=== PATIENT | male | born 1945 | race Caucasian/White ===

== ENCOUNTER 2020-06-14 10:24 | Day surgery (SDC) | payer MEDICARE, SELFPAY ==
--- NOTE | 2020-06-01 13:47 | MHC.SHP ---
Pre-Procedural Eval Section A The patient is an INPATIENT: No The History & Physical has been completed within 30 days and I have reviewed it.: Yes Section B Chief Complaint: Cataract Right Eye Plan Diagnosis/Plan: Unchanged Patient has been examined and remains a candidate for the planned procedure
[2020-06-03 14:42] VITALS: BMI 26.6
--- NOTE | 2020-06-07 14:40 | HO.ANESPROP2 ---
Documented by User: Alma Rosa Payan 06/07/20 14:40 HPI - Anesthesia Eval Consult details Narrative: 74yo M for Cataract Extraction No prev cataract [facility] Past Medical History Medical History Acne rosacea Coronary arteriosclerosis Former smoker GERD (gastroesophageal reflux disease) Gout Hx of renal calculi Hyperlipidemia Hypothyroidism Surgical History Surgical History Hx of CABG Hx of cystoscopy Social History Social History Are you a primary child care attendant school to a significant other at home: No Do you presently have visiting nurse or other home services: No Smoking Status: Former smoker Smoking Quit Date: 50 yrs ago Use of substances other than those prescribed or required for medical reasons: No Have you been hit, kicked, punched, or otherwise hurt by someone within the past year? If so, by whom?: No Advance Directives: No Advance Directives Information Provided: No Advance Directives on File: No Meds Allergies Allergy/AdvReac Type Severity Reaction Status Date / Time Penicillins Allergy Unknown Rash Unverified 06/14/20 10:50 Home Medications Medication Instructions Recorded Confirmed Type levothyroxine 1 tab PO DAILY 06/03/20 06/03/20 History lorazepam 1 tab PO TID PRN 06/03/20 06/03/20 History metronidazole 1 applic TOPICAL DAILY 06/03/20 06/03/20 History omeprazole magnesium [Prilosec OTC] 20 mg PO DAILY 06/03/20 06/03/20 History simvastatin 40 mg PO DAILY 06/03/20 06/03/20 History Exam Exam Date and Time: June 07, 2020 1440 Height,Weight and Vital Signs: Height 5 ft 8 in Weight 79.379 kg Assessment and Plan Assessment Anesthesia Assessment: Chart Reviewed Documented by User: Teagan Stack 06/14/20 11:07 [facility] Past Medical History Medical History Acne rosacea Coronary arteriosclerosis Former smoker GERD (gastroesophageal reflux disease) Gout Hx of renal calculi Hyperlipidemia Hypothyroidism Surgical History Surgical History Hx of CABG Hx of cystoscopy Social History Social History Are you a primary child care attendant school to a significant other at home: No Do you presently have visiting nurse or other home services: No Smoking Status: Former smoker Smoking Quit Date: 50 yrs ago Use of substances other than those prescribed or required for medical reasons: No Have you been hit, kicked, punched, or otherwise hurt by someone within the past year? If so, by whom?: No Advance Directives: No Advance Directives Information Provided: No Advance Directives on File: No Meds Allergies Allergy/AdvReac Type Severity Reaction Status Date / Time Penicillins Allergy Unknown Rash Unverified 06/14/20 10:50 Home Medications Medication Instructions Recorded Confirmed Type levothyroxine 1 tab PO DAILY 06/03/20 06/03/20 History lorazepam 1 tab PO TID PRN 06/03/20 06/03/20 History metronidazole 1 applic TOPICAL DAILY 06/03/20 06/03/20 History omeprazole magnesium [Prilosec OTC] 20 mg PO DAILY 06/03/20 06/03/20 History simvastatin 40 mg PO DAILY 06/03/20 06/03/20 History Exam Narrative Narrative: upper temporary bridge Airway Mallampati Class: II TM Dist: >3cm Neck ROM: Full Loose/Missing/Broken Teeth: No Heart: RRR Lungs: CTA Assessment and Plan Assessment Anesthesia Assessment: Anesthesia Plan Discussed and Chart Reviewed Final Anesthetic Review NPO: Yes ASA Class: II Final Preanesthetic Review: Meds/Allgs Chart Reviewed, Consent Obtained/Reviewed and Anes Risks/Benef Reviewed Patient Risk: Intermediate Procedure Risk: Low Anesthetic Plan Anesthetic Plan: MAC: Disposition: Standard PACU
[2020-06-14 10:50] VITALS: BP 126/63; PULSE 56; RESP 16; TEMP 36.8; O2SAT 97
[2020-06-14] MEDS: Tetracaine HCl/PF 0.5% Oph Sol 4 ML DROPS 1 DROP EYE-RIGHT (10:59)
[2020-06-14] MEDS: Lactated Ringers 500 ML 50 ML IV (10:59)
[2020-06-14] MEDS: Tropicamide 1 % Ophth Sol 3 ML BTL 1 DROP EYE-RIGHT ×3 (11:01→11:08)
[2020-06-14 12:26] VITALS: BP 120/57; PULSE 50; RESP 16; TEMP 36.6; O2SAT 98
--- NOTE | 2020-06-14 12:29 | HO.PNOPHT ---
Ophthalmology Procedure Procedure Date of Service: 06/14/20 Ophthalmology Viscoelastic: Healon Duet Dual Pack Pro Ophthalmology Lenses: TECNIS [id number] (22.5) Procedure Notes: PREOPERATIVE DIAGNOSIS: Decreased visual acuity right eye secondary to cataract POSTOPERATIVE DIAGNOSIS: Same PROCEDURE: Right cataract extraction with intraocular lens insertion SURGEON: Scottie Trevino M.D. ANESTHESIA: Topical/MAC ESTIMATED BLOOD LOSS: None COMPLICATIONS: None After obtaining informed consent, the patient was brought to the operating room suite and placed in the supine position. After adequate sedation per anesthesia, topical drops of Tetracaine were given to the right eye. The eye was then prepped and draped in the usual sterile fashion. The operating room microscope was then positioned over the operative eye and a lid speculum placed. A paracentesis was created. Viscoelastic was then instilled into the anterior chamber. A three plane incision was then created temporally, utilizing a 2.85 mm keratome. Capsulotomy forceps were then utilized to create a circular tear capsulotomy. Hydrodissection and hydrodelineation were carried out until adequate mobilization of the nucleus occurred. Phacoemulsification was then utilized to remove the dense central nucleus followed by removal of the cortical material utilizing the automated aspiration irrigation unit. Viscoelastic was instilled into the posterior capsular bag followed by placement of a posterior chamber intraocular lens without difficulty. The residual Viscoelastic was then removed utilizing the automated IA machine. The wound was checked and found to be watertight. The patient tolerated the procedure well and the lid speculum was removed. Intracameral injection of Vigamox 0.1 mL followed by a subtenon injection of Kenalog-40 0.2 mL were administered. The patient will be seen in the a.m.
== END 2020-06-14 12:45 | disposition home or self-care (01) ==
PROVIDERS: PCP Internal Medicine; Visit Provider Ophthalmology
PROC: (CPT 66985; principal; 2020-06-14 13:10)
DX: H25.11 Age-related nuclear cataract, right eye (principal)
CPT/HCPCS: 66984; J2250; J3010; J3300; V2632

== ENCOUNTER 2020-06-28 07:58 | Day surgery (SDC) | payer MEDICARE, SELFPAY ==
[2020-06-03 14:46] VITALS: BMI 26.6
--- NOTE | 2020-06-24 08:36 | MHC.SHP ---
Pre-Procedural Eval Section A The patient is an INPATIENT: No The History & Physical has been completed within 30 days and I have reviewed it.: Yes Section B Chief Complaint: Cataract Left Eye Allergies: Allergies Allergy/AdvReac Type Severity Reaction Status Date / Time Penicillins Allergy Unknown Rash Unverified 06/14/20 10:50 Plan Diagnosis/Plan: Unchanged Patient has been examined and remains a candidate for the planned procedure
--- NOTE | 2020-06-25 11:10 | P.CONAN_ITS ---
Documented by User: Alma Rosa Payan 06/25/20 11:15 HPI - Anesthesia Eval Consult details Narrative: 74yo M for Cataract Extraction PCP cleared, >30 days, anesth to do 30 day update First eye 06/14/20; Fent 50, Midaz 2 [facility] Past Medical History Medical History Acne rosacea Coronary arteriosclerosis Former smoker GERD (gastroesophageal reflux disease) Gout Hx of renal calculi Hyperlipidemia Hypothyroidism Surgical History Surgical History Hx of CABG Hx of cystoscopy Social History Social History Are you a primary ocular care aide to a significant other at home: No Smoking Status: Former smoker Smoking Quit Date: 50 yrs ago Use of substances other than those prescribed or required for medical reasons: No Advance Directives: No Advance Directives Information Provided: No Advance Directives on File: No Meds Allergies Allergy/AdvReac Type Severity Reaction Status Date / Time Penicillins Allergy Unknown Rash Unverified 06/14/20 10:50 Home Medications Medication Instructions Recorded Confirmed Type levothyroxine 1 tab PO DAILY 06/03/20 06/28/20 History lorazepam 1 tab PO TID PRN 06/03/20 06/03/20 History metronidazole 1 applic TOPICAL DAILY 06/03/20 06/03/20 History omeprazole magnesium [Prilosec OTC] 20 mg PO DAILY 06/03/20 06/03/20 History simvastatin 40 mg PO DAILY 06/03/20 06/03/20 History Exam Exam Date and Time: June 25, 2020 1110 Height,Weight and Vital Signs: Height 5 ft 8 in Weight 79.379 kg Assessment and Plan Assessment Anesthesia Assessment: Chart Reviewed Documented by User: Teagan Stack 06/28/20 09:34 [facility] Past Medical History Medical History Acne rosacea Coronary arteriosclerosis Former smoker GERD (gastroesophageal reflux disease) Gout Hx of renal calculi Hyperlipidemia Hypothyroidism Surgical History Surgical History Hx of CABG Hx of cystoscopy Social History Social History Are you a primary ocular care aide to a significant other at home: No Smoking Status: Former smoker Smoking Quit Date: 50 yrs ago Use of substances other than those prescribed or required for medical reasons: No Advance Directives: No Advance Directives Information Provided: No Advance Directives on File: No Meds Allergies Allergy/AdvReac Type Severity Reaction Status Date / Time Penicillins Allergy Unknown Rash Unverified 06/14/20 10:50 Home Medications Medication Instructions Recorded Confirmed Type levothyroxine 1 tab PO DAILY 06/03/20 06/28/20 History lorazepam 1 tab PO TID PRN 06/03/20 06/03/20 History metronidazole 1 applic TOPICAL DAILY 06/03/20 06/03/20 History omeprazole magnesium [Prilosec OTC] 20 mg PO DAILY 06/03/20 06/03/20 History simvastatin 40 mg PO DAILY 06/03/20 06/03/20 History Exam Airway Mallampati Class: II TM Dist: >3cm Neck ROM: Full Loose/Missing/Broken Teeth: No Heart: RRR Lungs: CTA Assessment and Plan Assessment Anesthesia Assessment: Anesthesia Plan Discussed and Chart Reviewed Final Anesthetic Review NPO: Yes ASA Class: II Final Preanesthetic Review: Meds/Allgs Chart Reviewed, Consent Obtained/Reviewed and Anes Risks/Benef Reviewed Patient Risk: Intermediate Procedure Risk: Low Anesthetic Plan Anesthetic Plan: MAC: Disposition: Standard PACU
--- NOTE | 2020-06-25 11:17 | MHC.SHP ---
Documented by User: Alma Rosa Payan 06/25/20 11:19 Pre-Procedural Eval Section B Chief Complaint: Cataract Left Eye Details of Present Illness: Decreased vision left eye Relevant Family History (Specify if Yes): No Relevant Social History: Tobacco Use (former) Present Medications: see Short Stay [facility] assessment Medical History: Significant History (See [facility] collab) History of Previous Operations: Relevant previous surgery/procedure and date(s) (right eye cataract 06/14/20 without issue) Allergies: Allergies Allergy/AdvReac Type Severity Reaction Status Date / Time Penicillins Allergy Unknown Rash Unverified 06/14/20 10:50 Plan Patient has been examined and remains a candidate for the planned procedure Documented by User: Fam Gallagher 06/28/20 09:23 Pre-Procedural Eval Section A The patient is an INPATIENT: No Changes since office visit: Yes Patient answered all questions The History & Physical has been completed within 30 days and I have reviewed it.: Yes Section B Chief Complaint: Cataract Left Eye Relevant Family History (Specify if Yes): No Present Medications: see [place] Stay [facility] assessment Documented by User: Teagan Stakc 06/28/20 09:25 Pre-Procedural Eval Section B Chief Complaint: Cataract Left Eye Details of Present Illness: Left eye cataract Relevant Family History (Specify if Yes): No Relevant Social History: None Present Medications: see Short Stay [facility] assessment Medical History: Significant History (Hypothyroid, HLd) History of Previous Operations: Relevant previous surgery/procedure and date(s) (Right cTaract 2 weeks ago) Allergies: PCN Review of Systems Sugical H&P ROS: Negative: Constitution, Cardiovascular, Respiratory, Neurological, Psychiatric, Hem-Onc, Allergic/Immunologic, Gastrointestinal, Musculoskeletal, Integumentary, Endocrine and Eyes/Ears/Nose/Throat Exam Surgical H&P Exam: Normal: HEENT, Normal: Heart, Normal: Lungs, Normal: Extremities, Normal: Abdomen, Normal: Skin and Normal: Neurological Plan Diagnosis/Plan: Unchanged
[2020-06-28] MEDS: Tetracaine HCl/PF 0.5% Oph Sol 4 ML DROPS 1 DROP EYE-LEFT (09:21)
[2020-06-28] MEDS: Tropicamide 1 % Ophth Sol 3 ML BTL 1 DROP EYE-LEFT ×3 (09:23→09:30)
[2020-06-28] MEDS: Phenylephrine HCL 2.5% Oph SoL 2 ML BOTTLE 1 DROP EYE-LEFT ×3 (09:26→09:33)
[2020-06-28] MEDS: Lactated Ringers 500 ML 50 ML IV (09:26)
[2020-06-28 09:33] VITALS: BP 130/61; PULSE 53; RESP 16; TEMP 36.7; O2SAT 98
--- NOTE | 2020-06-28 10:21 | HO.PNOPHT ---
Ophthalmology Procedure Procedure Date of Service: 06/28/20 Ophthalmology Viscoelastic: Healon Duet Dual Pack Pro Ophthalmology Lenses: TECGITA [id number] (23) Procedure Notes: PREOPERATIVE DIAGNOSIS: Decreased visual acuity left eye secondary to cataract POSTOPERATIVE DIAGNOSIS: Same PROCEDURE: Left cataract extraction with intraocular lens insertion SURGEON: Scottie Trevino M.D. ANESTHESIA: Topical/MAC ESTIMATED BLOOD LOSS: None COMPLICATIONS: None After obtaining informed consent, the patient was brought to the operation room suite and placed in the supine position. After adequate sedation per anesthesia, topical drops of Tetracaine were given to the left eye. The eye was then prepped and draped in the usual sterile fashion. The operating room microscope was then positioned over the operative eye and a lid speculum placed. A paracentesis was created. Viscoelastic was then instilled into the anterior chamber. A three plane incision was then created temporally, utilizing a 2.85 mm keratome. Capsulotomy forceps were then utilized to create a circular tear capsulotomy. Hydrodissection and hydrodelineation were carried out until adequate mobilization of the nucleus occurred. Phacoemulsification was then utilized to remove the dense central nucleus followed by removal of the cortical material utilizing the automated aspiration irrigation unit. Viscoat elastic was instilled into the posterior capsular bag followed by placement of a posterior chamber intraocular lens without difficulty. The residual Viscoat elastic was then removed utilizing the automated IA machine. The wound was check and found to be watertight. The patient tolerated the procedure well and the lid speculum was removed. Intracameral injection of Vigamox 0.1 mL followed by a subtenon injection of Kenalog-40 0.2 mL were administered. The patient will be seen in the a.m.
[2020-06-28 10:23] VITALS: BP 110/54; PULSE 52; RESP 18; TEMP 36.6; O2SAT 98
--- NOTE | 2020-06-28 10:33 | HO.POSTANES ---
Post Anesthesia Evaluation Post Anesthesia Evaluation Vital Signs: Vital Signs Temp Pulse Resp BP Pulse Ox 06/28/20 10:23 97.9 F 52 18 110/54 L 98 06/28/20 09:33 98.0 F 53 16 130/61 98 Anesthesia: Monitored Mental Status: Awake Pain Control: Satisfactory Nausea/Vomiting: None Hydration: Adequate Anesthesia-Related Issues: No Anes. Related Issues
== END 2020-06-28 10:47 | disposition home or self-care (01) ==
PROVIDERS: PCP Internal Medicine; Visit Provider Ophthalmology
PROC: (CPT 66985; principal; 2020-06-28 10:00)
DX: H25.12 Age-related nuclear cataract, left eye (principal); H52.4 Presbyopia; E03.9 Hypothyroidism, unspecified; E78.5 Hyperlipidemia, unspecified; Z87.891 Personal history of nicotine dependence; Z79.899 Other long term (current) drug therapy
CPT/HCPCS: 66984; J2250; J3010; J3300; V2632

== ENCOUNTER 2020-10-01 08:05 | Outpatient (REF) | payer MEDICARE, SELFPAY ==
[2020-10-01 09:10] LABS: MANUAL DIFF FLAG NO
[2020-10-01 09:15] LABS: Basophils Absolute Auto 0.1 X10*3/uL (0.0-0.2); Eosinophils Absolute Auto 0.2 X10*3/uL (0.0-0.4); Eosinophils Percent Auto 2.9 % (0-4); Hematocrit 46.5 % (42-52); Hemoglobin 15.1 g/dl (14.0-18.0); Imm Gran Abs Auto 0.04 X10*3/uL (0.00-0.03); Imm Gran Pct Auto 0.7 % (0.0-0.4); Lymphocytes Absolute Auto 1.5 X10*3/uL (1.2-4.9); Lymphocytes Percent Auto 25.5 % (20-40); Mean Corpuscular HGB Conc 32.5 g/dl (31.0-36.0); Mean Corpuscular Hemoglobin 31.8 pg (27.0-33.0); Mean Corpuscular Volume 97.9 fL (80-98); Mean Platelet Volume 11.4 fL (9.4-12.4); Monocytes Absolute Auto 0.8 X10*3/uL (0.1-1.2); Monocytes Percent Auto 13.4 % (2-11); Neutrophils Absolute Auto 3.4 X10*3/uL (2.0-8.3); Neutrophils Percent Auto 56.5 % (45-73); Platelet Count 190 X10*3/uL (160-400); Red Blood Count 4.75 X10*6/uL (4.60-5.80); Red Cell Distribution Width 12.9 % (11.0-16.0)
[2020-10-01 09:39] LABS: Alanine Aminotransferase 16 U/L (0-40); Albumin Level 3.8 g/dL (3.5-5.0); Alkaline Phosphatase 69 U/L (39-117); Anion Gap 10 (12-20); Aspartate Amino Transferase 23 U/L (5-37); Bilirubin Total 0.8 mg/dL (0.0-1.0); Blood Urea Nitrogen 21 mg/dL (9-16); Calcium 8.6 mg/dL (8.4-10.2); Carbon Dioxide 27 mmol/L (22-29); Chloride 106 mmol/L (96-108); Cholesterol 109 mg/dL; Estimated Glomerular Filt Rate > 60; Glucose Random 92 mg/dL (60-115); HDL Cholesterol 35 mg/dL; LDL Cholesterol Calculated 63 mg/dl; Potassium 4.6 mmol/L (3.3-5.1); Sodium 138 mmol/L (135-145); Triglycerides 56 mg/dL; Uric Acid 5.5 mg/dL (3.4-7.0)
[2020-10-01 10:12] LABS: Prostate Specific Antigen 1.25 ng/mL (<0.05-4.0)
== END 2020-10-01 08:06 | disposition home or self-care (01) ==
LOC: HO.LAB 08:05
PROVIDERS: PCP Internal Medicine; Visit Provider Internal Medicine
DX: Z00.01 Encounter for general adult medical examination with abnormal findings (principal); Z13.6 Encounter for screening for cardiovascular disorders; Z12.5 Encounter for screening for malignant neoplasm of prostate; M10.9 Gout, unspecified
CPT/HCPCS: 36415; 80053; 80061; 84153; 84550; 85025

== ENCOUNTER 2021-08-29 08:14 | Outpatient (REF) | payer MEDICARE, SELFPAY ==
[2021-08-29 11:39] LABS: Alanine Aminotransferase 15 U/L (0-40); Albumin Level 3.9 g/dL (3.5-5.0); Alkaline Phosphatase 74 U/L (39-117); Anion Gap 7 (12-20); Aspartate Amino Transferase 19 U/L (5-37); Bilirubin Total 0.7 mg/dL (0.0-1.0); Blood Urea Nitrogen 23 mg/dL (9-16); Calcium 9.2 mg/dL (8.4-10.2); Carbon Dioxide 29 mmol/L (22-29); Chloride 106 mmol/L (96-108); Estimated Glomerular Filt Rate > 60; Glucose Random 75 mg/dL (60-115); Potassium 4.4 mmol/L (3.3-5.1); Sodium 138 mmol/L (135-145); Total Protein 7.3 g/dL (6.5-8.0); Uric Acid 5.3 mg/dL (3.4-7.0)
[2021-08-29 11:44] LABS: Free T4 (Free Thyroxine) 1.04 ng/dL (0.71-1.85); Thyroid Stimulating Hormone 2.99 uIU/mL (0.32-4.0)
== END 2021-08-29 08:15 | disposition home or self-care (01) ==
LOC: HO.MANLDS 08:14
PROVIDERS: PCP Physician Assistant; Visit Provider Physician Assistant
DX: M10.072 Idiopathic gout, left ankle and foot (principal); E78.01 Familial hypercholesterolemia; E03.8 Other specified hypothyroidism
CPT/HCPCS: 36415; 80053; 84439; 84443; 84550

== ENCOUNTER 2021-11-09 11:45 | Outpatient (REF) | payer MEDICARE, SELFPAY ==
--- NOTE | ~2021-11-09 | XR_ITS ---
EXAMINATION: XR CHEST CLINICAL INFORMATION: Cough COMPARISON: None TECHNIQUE: 2 views of the chest were obtained. FINDINGS: Patchy airspace opacities of the lower lobes, left greater than right. No pleural effusion or pneumothorax. Heart size is normal. Prior coronary artery bypass grafting. Atherosclerosis thoracic aorta. No acute osseous abnormality. ORIF right clavicle. XR/XR chest 2V IMPRESSION: Patchy airspace opacities bilaterally, left greater than right. In this patient with cough, this finding would be in keeping with pneumonia or other acute inflammatory process. Follow-up to resolution recommended. The report will be called to the ordering clinician by a [facility] Workflow Coordinator.
== END 2021-11-09 11:46 | disposition home or self-care (01) ==
LOC: HO.XRAY 11:45
PROVIDERS: PCP Internal Medicine; Visit Provider Physician Assistant
DX: R05.1 Acute cough (principal)
CPT/HCPCS: 71046

== ENCOUNTER 2022-08-09 10:22 | Outpatient (REF) | payer MEDICARE, SELFPAY ==
[2022-08-09 10:42] LABS: MANUAL DIFF FLAG NO
[2022-08-09 11:39] LABS: Basophils Absolute Auto 0.1 X10*3/uL (0.0-0.2); Basophils Percent Auto 1.4 % (0-2); Eosinophils Absolute Auto 0.1 X10*3/uL (0.0-0.4); Eosinophils Percent Auto 1.2 % (0-4); Hematocrit 45.7 % (42.0-52.0); Hemoglobin 14.9 g/dl (14.0-18.0); Imm Gran Abs Auto 0.03 X10*3/uL (0.00-0.03); Imm Gran Pct Auto 0.5 % (0.0-0.4); Lymphocytes Absolute Auto 1.5 X10*3/uL (1.2-4.9); Lymphocytes Percent Auto 25.8 % (20-40); Mean Corpuscular HGB Conc 32.6 g/dl (31.0-36.0); Mean Corpuscular Hemoglobin 31.4 pg (27.0-33.0); Mean Corpuscular Volume 96.2 fL (80.0-98.0); Mean Platelet Volume 11.1 fL (9.4-12.4); Monocytes Absolute Auto 0.8 X10*3/uL (0.1-1.2); Monocytes Percent Auto 13.5 % (2-11); Neutrophils Absolute Auto 3.3 x10*3/uL (2.0-8.3); Neutrophils Percent Auto 57.6 % (45-73); Platelet Count 177 X10*3/uL (160-400); Red Blood Count 4.75 X10*6/uL (4.60-5.80); Red Cell Distribution Width 13.1 % (11.0-16.0); White Blood Count 5.8 X10*3/uL (4.8-10.8)
[2022-08-09 12:28] LABS: Alanine Aminotransferase 18 U/L (0-40); Albumin Level 3.6 g/dL (3.5-5.0); Alkaline Phosphatase 73 U/L (39-117); Anion Gap 11 (12-20); Aspartate Amino Transferase 24 U/L (5-37); Blood Urea Nitrogen 16 mg/dL (9-16); Carbon Dioxide 28 mmol/L (22-29); Chloride 106 mmol/L (96-108); Cholesterol 108 mg/dL; Estimated Glomerular Filt Rate > 60; Glucose Random 91 mg/dL (60-115); HDL Cholesterol 35 mg/dL; LDL Cholesterol Calculated 62 mg/dl; Potassium 4.9 mmol/L (3.3-5.1); Prostate Specific Antigen 1.78 ng/mL (<0.05-4.0); Sodium 140 mmol/L (135-145); Thyroid Stimulating Hormone 1.48 uIU/mL (0.32-4.0); Total Protein 6.7 g/dL (6.5-8.0); Triglycerides 58 mg/dL; Vitamin D 25-OH Total 25.9 ng/mL (>30)
[2022-08-09 12:32] LABS: Vitamin B12 498 pg/mL (200-900)
== END 2022-08-09 10:23 | disposition home or self-care (01) ==
LOC: HO.LAB 10:22
PROVIDERS: PCP Internal Medicine; Visit Provider Internal Medicine
DX: Z00.00 Encounter for general adult medical examination without abnormal findings (principal); Z12.5 Encounter for screening for malignant neoplasm of prostate; M10.9 Gout, unspecified
CPT/HCPCS: 36415; 80053; 80061; 82306; 82607; 84153; 84443; 84550; 85025

== ENCOUNTER 2023-01-03 08:26 | Outpatient (REF) | payer MEDICARE, SELFPAY ==
[2023-01-03 10:14] LABS: Estimated Average Glucose 103 mg/dL; Hemoglobin A1c % 5.2 %
[2023-01-03 11:23] LABS: Alanine Aminotransferase 18 U/L (0-40); Albumin Level 3.7 g/dL (3.5-5.0); Alkaline Phosphatase 73 U/L (39-117); Anion Gap 10 (12-20); Aspartate Amino Transferase 23 U/L (5-37); Bilirubin Direct 0.3 mg/dL (0.0-0.5); Bilirubin Total 1.2 mg/dL (0.0-1.0); Blood Urea Nitrogen 17 mg/dL (9-16); Calcium 9.2 mg/dL (8.4-10.2); Carbon Dioxide 27 mmol/L (22-29); Chloride 108 mmol/L (96-108); Cholesterol 100 mg/dL; Estimated Glomerular Filt Rate > 60; Glucose Random 86 mg/dL (60-115); HDL Cholesterol 32 mg/dL; LDL Cholesterol Calculated 56 mg/dl; Potassium 4.8 mmol/L (3.3-5.1); Sodium 140 mmol/L (135-145); Total Protein 7.3 g/dL (6.5-8.0); Triglycerides 62 mg/dL
== END 2023-01-03 08:27 | disposition home or self-care (01) ==
LOC: HO.LAB 08:26
PROVIDERS: PCP Internal Medicine; Visit Provider Internal Medicine Cardiovascular Disease
DX: E78.2 Mixed hyperlipidemia (principal)
CPT/HCPCS: 36415; 80048; 80061; 80076; 83036

== ENCOUNTER 2023-06-22 11:48 | Outpatient (REF) | payer MEDICARE, SELFPAY ==
[2023-06-22 14:16] LABS: Free T4 (Free Thyroxine) 1.13 ng/dL (0.71-1.85); Thyroid Stimulating Hormone 1.22 uIU/mL (0.32-4.0)
== END 2023-06-22 11:49 | disposition home or self-care (01) ==
LOC: HO.MANLDS 11:48
PROVIDERS: Visit Provider Internal Medicine
DX: E03.8 Other specified hypothyroidism (principal)
CPT/HCPCS: 36415; 84439; 84443

== ENCOUNTER 2024-01-04 08:17 | Outpatient (REF) | payer MEDICARE, SELFPAY ==
[2024-01-04 08:42] LABS: MANUAL DIFF FLAG NO
[2024-01-04 09:03] LABS: Basophils Absolute Auto 0.1 X10*3/uL (0.0-0.2); Basophils Percent Auto 0.8 % (0-2); Eosinophils Absolute Auto 0.1 X10*3/uL (0.0-0.4); Eosinophils Percent Auto 1.8 % (0-4); Hematocrit 44.2 % (42.0-52.0); Imm Gran Abs Auto 0.02 X10*3/uL (0.00-0.03); Imm Gran Pct Auto 0.3 % (0.0-0.4); Lymphocytes Absolute Auto 1.7 X10*3/uL (1.2-4.9); Lymphocytes Percent Auto 28.1 % (20-40); Mean Corpuscular HGB Conc 33.9 g/dl (31.0-36.0); Mean Corpuscular Hemoglobin 32.5 pg (27.0-33.0); Mean Corpuscular Volume 95.7 fL (80.0-98.0); Mean Platelet Volume 10.9 fL (9.4-12.4); Monocytes Absolute Auto 0.7 X10*3/uL (0.1-1.2); Monocytes Percent Auto 11.4 % (2-11); Neutrophils Absolute Auto 3.5 x10*3/uL (2.0-8.3); Neutrophils Percent Auto 57.6 % (45-73); Platelet Count 154 X10*3/uL (160-400); Red Blood Count 4.62 X10*6/uL (4.60-5.80); Red Cell Distribution Width 12.8 % (11.0-16.0)
[2024-01-04 09:52] LABS: Alanine Aminotransferase 14 U/L (0-40); Albumin Level 3.7 g/dL (3.5-5.0); Alkaline Phosphatase 73 U/L (39-117); Anion Gap 8 (12-20); Aspartate Amino Transferase 24 U/L (5-37); Bilirubin Total 0.6 mg/dL (0.0-1.0); Blood Urea Nitrogen 19 mg/dL (9-16); Calcium 9.5 mg/dL (8.4-10.2); Carbon Dioxide 27 mmol/L (22-29); Chloride 110 mmol/L (96-108); Cholesterol 112 mg/dL (<200); Estimated Glomerular Filt Rate > 60; Glucose Random 100 mg/dL (60-115); HDL Cholesterol 33 mg/dL (>40); LDL Cholesterol Calculated 69 mg/dL (<100); Potassium 4.4 mmol/L (3.3-5.1); Sodium 141 mmol/L (135-145); Triglycerides 50 mg/dL (<150)
[2024-01-04 10:02] LABS: Prostate Specific Antigen 1.13 ng/mL (<0.05-4.0)
== END 2024-01-04 08:18 | disposition home or self-care (01) ==
LOC: HO.LAB 08:17
PROVIDERS: PCP Internal Medicine; Visit Provider Internal Medicine
DX: E78.01 Familial hypercholesterolemia (principal); Z12.5 Encounter for screening for malignant neoplasm of prostate
CPT/HCPCS: 36415; 80053; 80061; 84153; 85025